=== PATIENT | female | born 1965 | race Caucasian/White ===

== ENCOUNTER 2023-05-05 21:35 | Observation (INO) | payer OTHER ==
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
[2023-05-06 07:44] LABS: Amphetamine Screen,Urine Not Detected (NotDetected); Barbiturate Screen,Urine Not Detected (NotDetected); Benzodiazepines Screen,Urine Not Detected (NotDetected); Cocaine Screen,Urine Not Detected (NotDetected); Methadone Screen, Urine Not Detected (NotDetected); Opiate Screen,Urine Not Detected (NotDetected); Oxycodone Screen, Urine Not Detected (NotDetected); Phencyclidine Screen,Urine Not Detected (NotDetected); Tricyclic Antidepressant,Urine Not Detected (NotDetected); Urn Cannabinoid Scrn Not Detected (NotDetected)
[2023-05-06] MEDS ORDERED: ACETAMINOPHEN TAB 325 MG TAB PO PRN (14:37)
[2023-05-06] MEDS ORDERED: NALOXONE 0.4 MG/ML 1 ML VIAL IV PRN (14:37)
[2023-05-06] MEDS ORDERED: ALBUTEROL HFA INHALER INHALATION PRN (15:55)
[2023-05-06] MEDS ORDERED: MELATONIN 3 MG TABLET PO PRN (15:56)
[2023-05-06] MEDS ORDERED: ONDANSETRON 4 MG/2 ML VIAL IVP PRN (15:56)
--- NOTE | 2023-05-06 16:18 | P.HPIM ---
History of Present Illness H&P Date: 05/06/23 Patient is a 57-year-old female with asthma, depression, and anxiety who presented to the ER with suicidal ideation. On presentation she stated she was thinking [place]. Initially she was slated for mental health evaluation. However her Covid test came back positive and we are asked to admit the patient to the medical floor. Patient seen and examined at bedside. She does state that she has been more depressed than normal recently. She does not want to elaborate. She reports that 2 weeks ago she thought she had Covid because she was having significant nasal congestion, cough, nausea, vomiting, and lipase and pains. Most that has gotten better but she has had some continued nasal congestion. At that point in time she did go see a provider for which she refused Covid testing was consulted with increased her anxiety. Currently she still has a cough but no other symptoms. Vital signs reviewed General: nontoxic, no distress, appears at stated age Derm: warm, dry Eyes: EOMI, no lid lag, anicteric sclera, pupils equal round reactive to light ENT: Nose and ears atraumatic, no thrush, no pharyngeal erythema Cardiovascular: S1S2 reg, no murmur, positive posterior tibial pulse bilateral, no edema, Lungs: clear to auscultation bilateral, no rhonchi, no rales, no wheeze, no accessory muscle use Abdominal: soft, nontender to palpation, no guarding, no appreciable organomegaly, normal bowel sounds Ext: no gross muscle atrophy, no contractures Neuro: CN II-XII grossly intact, no focal neuro deficits Psych: Alert, oriented, appears anxious Assessment/Plan: Suicidal ideation and patient with a history of depression COVID + Asthma without exacerbation Tobacco abuse - nicotine patch 14 mcg daily - Check CBC and CMP - suicide precautions - consult psych -Resume her home albuterol inhaler 4 times daily scheduled and as needed for shortness of breath Imaging: None Data Review: Urine drug screen negative. Covid positive The patient is admitted with an anticipated greater than 2 midnight stay for evaluation of COVID and Suicidal ideation. Anticipated discharge date: [address]: [facility] This dictation was prepared using Fracture voice recognition software. Though every attempt is made to correct errors during dictation some may still exist. Past Medical History Past Medical History: Asthma, Skin Disorder History of Any Multi-Drug Resistant Organisms: None Reported Past Surgical History: Adenoidectomy, Cholecystectomy, Tonsillectomy Past Psychological History: Anxiety, Depression Smoking Status: Current every day smoker Past Alcohol Use History: None Reported Past Drug Use History: None Reported Medications and Allergies Home Medications Medication Instructions Recorded Confirmed Type Albuterol Sulfate [Ventolin HFA] 2 puff INHALATION RT-Q6H PRN 05/06/23 05/06/23 History Allergies Allergy/AdvReac Type Severity Reaction Status Date / Time Iodinated Contrast Media Allergy Swelling Verified 05/06/23 10:23 sulfamethoxazole AdvReac cannot Verified 05/06/23 10:23 [From Bactrim] urinate trimethoprim [From Bactrim] AdvReac cannot Verified 05/06/23 10:23 urinate Physical Exam Osteopathic Statement: *. No significant issues noted on an osteopathic structural exam other than those noted in the History and Physical/Consult. Vitals: Vital Signs Temp Pulse Resp BP Pulse Ox 05/06/23 06:10 98.3 F 72 18 118/78 98 05/05/23 21:41 98.1 F 77 18 122/81 98 Results Labs: Abnormal Lab Results - Last 24 Hours (Table) 05/06/23 Range/Units 13:00 SARS-CoV-2 (PCR) Detected A (Not Detectd)
[2023-05-06] MEDS: ALBUTEROL HFA INHALER INHALATION SCH ×2 (16:42→20:46)
[2023-05-06 17:45] LABS: HCT 42.3 % (34.0-46.0); HGB 13.7 gm/dL (11.4-16.0); MCH 27.2 pg (25.0-35.0); MCHC 32.5 g/dL (31.0-37.0); MCV 83.8 fL (80.0-100.0); Mean Platelet Volume 9.6; Platelet Count 201 k/uL (150-450); RBC 5.04 m/uL (3.80-5.40); RDW 13.5 % (11.5-15.5); WBC 10.1 k/uL (3.8-10.6)
[2023-05-06 17:58] LABS: ALT 38 U/L (4-34); AST 28 U/L (14-36); African American GFR (CKD) >90 (>60 ml/min/1.73 sqM); Albumin 4.2 g/dL (3.5-5.0); Albumin/Globulin Ratio 1.5; Alkaline Phosphatase 80 U/L (38-126); Anion Gap 13 mmol/L; Blood Urea Nitrogen 16 mg/dL (7-17); Calcium 9.3 mg/dL (8.4-10.2); Carbon Dioxide 26 mmol/L (22-30); Chloride 101 mmol/L (98-107); Globulin 2.8 g/dL; Glucose 146 mg/dL (74-99); Non-African American GFR(CKD) 83 (>60 ml/min/1.73 sqM); Potassium 3.9 mmol/L (3.5-5.1); Sodium 140 mmol/L (137-145); Total Bilirubin 0.4 mg/dL (0.2-1.3)
[2023-05-07] MEDS: NICOTINE 14MG/24HR PATCH TRANSDERM SCH (08:19)
[2023-05-07] MEDS: ALBUTEROL HFA INHALER INHALATION SCH ×4 (09:21→20:17)
[2023-05-07 11:47] VITALS: BMI 33.0
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
--- NOTE | 2023-05-07 18:37 | P.PN ---
Subjective Progress Note Date: 05/07/23 Hospital course: Patient is a very pleasant 57-year-old female with asthma, depression, and anxiety who presented to the ER with suicidal ideation. On presentation she stated she was thinking [place]. Initially she was slated for mental health evaluation. However her Covid test came back positive and we were asked to admit the patient to the medical floor. Physical exam: Patient seen and fully evaluated at the bedside. Patient denies having any com plaints at this time. Patient is positive for Covid 19 infection reports this was likely from 2 weeks ago when she experienced upper respiratory symptoms and GI symptoms but currently denies having any associated symptoms at this time. Vital signs reviewed General: nontoxic, no distress, appears at stated age Derm: warm, dry Eyes: EOMI, no lid lag, anicteric sclera, pupils equal round reactive to light ENT: Nose and ears atraumatic, no thrush, no pharyngeal erythema Cardiovascular: S1S2 reg, no murmur, positive posterior tibial pulse bilateral, no edema, Lungs: clear to auscultation bilateral, no rhonchi, no rales, no wheeze, no accessory muscle use Abdominal: soft, nontender to palpation, no guarding, no appreciable organomegaly, normal bowel sounds Ext: no gross muscle atrophy, no contractures Neuro: CN II-XII grossly intact, no focal neuro deficits Psych: Alert, oriented, appears anxious Assessment and plan of care: Suicidal ideation in patient with a history of depression COVID detected, asymptomatic Asthma without exacerbation Tobacco abuse -Continue nicotine patch 14 mcg daily -Suicide precautions with one-to-one sitter at all times -Psychiatry following, appreciate recommendations -Resume her home albuterol inhaler 4 times daily scheduled and as needed for shortness of breath Imaging reviewed: No new imaging for review: Data Reviewed: -Labs completed and Reviewed CBC and CMP. CBC unremarkable with WBC count of 10.1, hemoglobin of 13.7, platelet count of 201. BMP was unremarkable. Glucose was 146. Liver profile showing elevated AST of 38 otherwise normal findings. -Vital signs reviewed. Blood pressure 156/69, heart rate 76, respiratory rate 18, temperature 98.2F, SpO2 of 95% on room air. CODE STATUS: Full code DVT prophylaxis: Lovenox Anticipated discharge date: [address]: [facility] Patient was seen independently by Nurse Pracitioner. This document was prepared using Blurb dictation software. Please allow for errors in software development manager, while rare they do occur. Myke Allen EXTENSION COURSE COUNSELOR rendered care for this patient independently, reviewed the findings and plan as documented in the note above. I did not physically speak with or examine the patient on this date. Objective - Vital Signs Vital signs: Vital Signs Temp 98.2 F 05/07/23 07:36 Pulse 76 05/07/23 07:36 Resp 18 05/07/23 07:36 BP 156/69 05/07/23 07:36 Pulse Ox 95 05/07/23 07:36 FiO2 Intake & Output 05/06/23 05/07/23 05/07/23 18:59 06:59 18:59 Weight 95.708 kg Other: Voiding Method Toilet # Voids 1 - Labs CBC & Chem 7: 05/06/23 17:26 05/06/23 17:26 Labs: Abnormal Lab Results - Last 24 Hours (Table) 05/06/23 05/06/23 Range/Units 13:00 17:26 Glucose 146 H (74-99) mg/dL ALT 38 H (4-34) U/L SARS-CoV-2 (PCR) Detected A (Not Detectd)
[2023-05-07] MEDS: risperiDONE 1 MG TAB PO SCH (20:59)
[2023-05-08] MEDS: ENOXAPARIN 40 MG/0.4 ML SYRINGE SQ SCH (07:26)
[2023-05-08] MEDS: NICOTINE 14MG/24HR PATCH TRANSDERM SCH (07:26)
[2023-05-08] MEDS: SERTRALINE 25 MG TAB PO SCH (07:26)
[2023-05-08] MEDS: ALBUTEROL HFA INHALER INHALATION SCH ×4 (08:28→20:08)
--- NOTE | 2023-05-08 16:07 | P.PN ---
Subjective Progress Note Date: 05/08/23 Hospital course: Patient is a very pleasant 57-year-old female with asthma, depression, and anxiety who presented to the ER with suicidal ideation. On presentation she stated she was thinking about [place]. Initially she was slated for mental health evaluation. However her Covid test came back positive and we were asked to admit the patient to the medical floor. Physical exam: Patient seen and fully evaluated at the bedside. Patient sitting up in the [facility] at bedside with one-to-one sitter in room. Patient continues to deny having any signs/symptoms of COVID-19 infection at this time. Vital signs reviewed General: nontoxic, no distress, appears at stated age Derm: warm, dry Eyes: EOMI, no lid lag, anicteric sclera, pupils equal round reactive to light ENT: Nose and ears atraumatic, no thrush, no pharyngeal erythema Cardiovascular: S1S2 reg, no murmur, positive posterior tibial pulse bilateral, no edema, Lungs: clear to auscultation bilateral, no rhonchi, no rales, no wheeze, no accessory muscle use Abdominal: soft, nontender to palpation, no guarding, no appreciable organomegaly, normal bowel sounds Ext: no gross muscle atrophy, no contractures Neuro: CN II-XII grossly intact, no focal neuro deficits Psych: Alert, oriented, appears anxious Assessment and plan of care: Suicidal ideation in patient with a history of depression COVID detected, asymptomatic Asthma without exacerbation Tobacco abuse -Continue nicotine patch 14 mcg daily -Suicide precautions with one-to-one sitter at all times -Psychiatry following, appreciate recommendations -Resume her home albuterol inhaler 4 times daily scheduled and as needed for shortness of breath Imaging reviewed: No new imaging for review: Data Reviewed: -Vital signs reviewed. Blood pressure 144/90, heart rate 67, respiratory rate 18, temp 98.4F, and SpO2 93% on room air. CODE STATUS: Full code DVT prophylaxis: Lovenox Anticipated discharge date: [address]: [facility] Patient was seen independently by Nurse Pracitioner. This document was prepared using ElasticDot dictation software. Please allow for errors in heel sprayer, while rare they do occur. Myke Allen NP rendered care for this patient independently, reviewed the findings and plan as documented in the note above. I did not physically speak with or examine the patient on this date. Objective - Vital Signs Vital signs: Vital Signs Temp 98.7 F 05/08/23 13:35 Pulse 65 05/08/23 13:35 Resp 18 05/08/23 13:35 BP 120/83 05/08/23 13:35 Pulse Ox 96 05/08/23 13:35 FiO2 Intake & Output 05/07/23 05/08/23 05/08/23 18:59 06:59 18:59 Weight 95.708 kg Other: # Voids 4 4 - Labs CBC & Chem 7: 05/06/23 17:26 05/06/23 17:26
[2023-05-08] MEDS: risperiDONE 1 MG TAB PO SCH (19:29)
[2023-05-09] MEDS: ENOXAPARIN 40 MG/0.4 ML SYRINGE SQ SCH (07:44)
[2023-05-09] MEDS: NICOTINE 14MG/24HR PATCH TRANSDERM SCH (07:44)
[2023-05-09] MEDS: SERTRALINE 25 MG TAB PO SCH (08:00)
[2023-05-09] MEDS: ALBUTEROL HFA INHALER INHALATION SCH ×4 (09:31→20:55)
--- NOTE | 2023-05-09 12:33 | P.PN ---
Subjective Progress Note Date: 05/09/23 Patient is a 57-year-old female with asthma, depression, and anxiety who presented to the ER with suicidal ideation. On presentation she stated she [place] Initially she was slated for mental health evaluation. However her COVID test came back positive and we are asked to admit the patient to the medical floor. In the ED she underwent extensive evaluation. Vital signs BP 122/81, RR, 18, HR 77, T98.1F, 98% on RA. CBC and UDS unremarkable. COVID + CMP glu 146, ALT 38. EKG sinus rhythm first degree AV block, incomplete RBBB. 05/09 Patient was seen and examined. Sitter at bedside. Vital signs reviewed General: nontoxic, no distress, appears at stated age Cardiovascular: good distal perfusion in all 4 extremities Lungs: breathing comfortably Neuro: ambulating without difficulties Psych: Alert, oriented, appropriate affect Based on my assessment of this patient, this patient meets a moderate complexity level of care. Patient has a new diagnosis of suicidal ideation with COVID + with uncertain prognosis. Suicidal ideation in patient with a history of depression: 1:1 sitter. Risperidal 1 mg PO QHS. Zoloft 25 mg PO QD. Inpatient psyc admission when able. Psychiatry on board. COVID detected, asymptomatic Asthma without exacerbation: Albuterol INH PRN for SOB/wheezing. Tobacco abuse: Nicotine patch 14 mg/24H. CODE STATUS: FULL CODE DVT Prophylaxis: Lovenox GI Prophylaxis: Designated medical POA if patient is not able to make medical decisions for themselves: I have reviewed the following customer care consultant notes: I have reviewed the results of the following tests: I have ordered the following tests: I have discussed the care of this patient with the following independent historian: I have independently interpreted the following test below: I have discussed the management of this patient with the following physician: Objective - Vital Signs Vital signs: Vital Signs Temp 97.8 F 05/09/23 02:15 Pulse 59 L 05/09/23 02:15 Resp 16 05/09/23 02:15 BP 139/78 05/09/23 02:15 Pulse Ox 94 L 05/09/23 02:15 FiO2 Intake & Output 05/08/23 05/09/23 05/09/23 18:59 06:59 18:59 Intake Total 960 Output Total 4 Balance -4 960 Intake: Oral 960 Output: Urine 4 Other: # Voids 3 # Bowel Movements 0 - Labs CBC & Chem 7: 05/06/23 17:26 05/06/23 17:26
--- NOTE | 2023-05-09 13:16 | P.PN ---
Subjective Progress Note Date: 05/09/23 Principal diagnosis: Delusional disorder DENTIFYING DATA: This patient is a 57-year-old female, currently homeless, is currently , unemployed, has 1 daughter. REASON FOR REFERRAL: Psychiatry was consulted for depression but the patient also has some paranoid delusions HISTORY OF PRESENT ILLNESS: The patient presented to the hospital on 05/05 to the ER with increasing depression and suicidal ideations and increasing stressors. Patient apparently claims that she had a plan to drive herself into the water was a suicide attempt. She says, "this has been the best thing that is ever happened to me because I had isolated myself and now I am getting back in touch with people and with God. " PAST PSYCHIATRIC HISTORY: Patient has a a history of depression. She claims that several years ago she was on Prozac however stopped taking it after a month. Patient denies any previous psychiatric hospitalizations. Patient denies any psychiatric outpatient follow-up. Patient denies any history of suicide attempts in the past. Past Medical History: Asthma, Skin Disorder History of Any Multi-Drug Resistant Organisms: None Reported Past Surgical History: Adenoidectomy, Cholecystectomy, Tonsillectomy Past Psychological History: Anxiety, Depression Smoking Status: Current every day smoker Past Alcohol Use History: None Reported Past Drug Use History: None Reported MENTAL STATUS EXAM: The patient is oriented alert good social skills and functions well until she starts talking about peculiar sabotaging events. For example she noticed that the entrance to the attic from her daughter's room had been moved and her daughter could not move it and she assumed that there must be a connection between her headache and the neighbors attic and that the neighbors were coming over looking for things in her apartment. When asked her what did be looking for she said her parents certificates. When I asked her why anyone would want that she couldn't answer. She also was working at [employer] and wanted to take some time off to reconnect with her daughter after Missy had down. She felt that [employer] older one she had worked hard for them thr oughout Missy and she was told that she could take the time off and come back anytime she wanted. When she tried to come back they wouldn't let her. She was going to have to lose her house can she could make payments but she had a lot of equity in so the bank moved in and started selling off her things and auctioning the house. She says she went to a realtor and said can they do that and what if I find someone to buy the house myself and they worked with her and were able to find someone to buy the house which is why she still has a little money but she does need to find a place to stay and a job. She had purchased something that was supposed to protect her allow her to have some time to get her act together if she was unable to pay the bank lone. When she went to collect on this policy they said that someone had called up and canceled again she felt that this was part of others machinations. Nothing that she believes is impossible but is highly unlikely she has more or less ego-syntonic affect when she presents it General Appearance: Patient appears to be have curly hair, stated age is alert, attempts to cooperate however suspicious, bizarre. Patient appears to have fair hygiene and grooming wearing hospital gown with fair eye contact. Behavior: Patient is calmly lying in bed without any agitated behavior. Bizarre at times, argumentative Speech: Patient's speech is fluent and nonpressured. Rambling. Mood/Affect: Patient reports their mood is "upset]", affect is congruent Suicidality/Homicidality: Patient denies having any suicidal or homicidal ideation intent or plan. Perceptions: Patient denies any visual hallucinations and denies any auditory hallucinations Though content/process: Patient has paranoid delusions, loosely formed, bizarre at times. Memory and concentration: AOX3, grossly intact for the purposes of this session. Can spell "WORLD" backwards Judgment and insight: poor IMPRESSIONS: I believe she is struggling with a delusional disorder PLAN: The patient is refusing medications at this time -At this time patient DOES meet criteria for inpatient psychiatric admission however due to patient being positive for covid, we'll continue to treat patient psychiatrically while on the medical floors. -Would recommend the following medication changes/additions: Risperdal 1 mg by mouth daily at bedtime for delusions/psychosis, Zoloft 25 mg daily for mood/anxiety. -Continue 1:1 sitter for safety -Cannot leave AMA at this time. Patient will need a petition and certification if attempting to leave AMA. -Communicated plan to patient's nurse -Will continue to follow along as needed. Objective - Vital Signs Vital signs: Vital Signs Temp 97.8 F 05/09/23 08:19 Pulse 80 05/09/23 08:19 Resp 16 05/09/23 08:19 BP 146/76 05/09/23 08:19 Pulse Ox 97 05/09/23 08:19 FiO2 Intake & Output 05/08/23 05/09/23 05/09/23 18:59 06:59 18:59 Intake Total 960 118 Output Total 4 Balance -4 960 118 Intake: Oral 960 118 Output: Urine 4 Other: # Voids 3 # Bowel Movements 0 - Labs CBC & Chem 7: 05/06/23 17:26 05/06/23 17:26
[2023-05-09] MEDS: risperiDONE 1 MG TAB PO SCH (19:19)
[2023-05-10] MEDS: NICOTINE 14MG/24HR PATCH TRANSDERM SCH (07:47)
[2023-05-10] MEDS: SERTRALINE 25 MG TAB PO SCH (07:47)
[2023-05-10] MEDS: ENOXAPARIN 40 MG/0.4 ML SYRINGE SQ SCH (07:47)
[2023-05-10] MEDS: ALBUTEROL HFA INHALER INHALATION SCH ×5 (09:00→18:13)
--- NOTE | 2023-05-10 10:57 | P.PN ---
Subjective Progress Note Date: 05/10/23 Patient is a 57-year-old female with asthma, depression, and anxiety who presented to the ER with suicidal ideation. On presentation she stated she was thinking [place] Initially she was slated for mental health evaluation. However her COVID test came back positive and we are asked to admit the patient to the medical floor. In the ED she underwent extensive evaluation. Vital signs BP 122/81, RR, 18, HR 77, T98.1F, 98% on RA. CBC and UDS unremarkable. COVID + CMP glu 146, ALT 38. EKG sinus rhythm first degree AV block, incomplete RBBB. 05/09 Patient was seen and examined. Sitter at bedside. 05/10 Patient was seen and examined. No complaints. Denies SI. Sitter at bed side. Vital signs reviewed General: nontoxic, no distress, appears at stated age Cardiovascular: good distal perfusion in all 4 extremities Lungs: breathing comfortably Neuro: ambulating without difficulties Psych: Alert, oriented, appropriate affect Based on my assessment of this patient, this patient meets a moderate complexity level of care. Patient has a new diagnosis of suicidal ideation with COVID + with uncertain prognosis. Suicidal ideation in patient with a history of depression: 1:1 sitter. Risperidal 1 mg PO QHS. Zoloft 25 mg PO QD. Inpatient psyc admission when able. Psychiatry on board. COVID detected, asymptomatic Asthma without exacerbation: Albuterol INH PRN for SOB/wheezing. Tobacco abuse: Nicotine patch 14 mg/24H. CODE STATUS: FULL CODE DVT Prophylaxis: Lovenox GI Prophylaxis: Designated medical POA if patient is not able to make medical decisions for themselves: I have reviewed the following financial analysis consultant notes: I have reviewed the results of the following tests: I have ordered the following tests: I have discussed the care of this patient with the following independent historian: I have independently interpreted the following test below: I have discussed the management of this patient with the following physician: Objective - Vital Signs Vital signs: Vital Signs Temp 97.9 F 05/10/23 07:10 Pulse 72 05/10/23 07:10 Resp 19 05/10/23 07:10 BP 142/87 05/10/23 07:10 Pulse Ox 96 05/10/23 07:10 FiO2 Intake & Output 05/09/23 05/10/23 05/10/23 18:59 06:59 18:59 Intake Total 236 Balance 236 Intake: Oral 236 Other: # Voids 2 3 # Bowel Movements 2 - Labs CBC & Chem 7: 05/06/23 17:26 05/06/23 17:26
[2023-05-10] MEDS: risperiDONE 1 MG TAB PO SCH (19:37)
[2023-05-11] MEDS: SERTRALINE 25 MG TAB PO SCH (08:11)
[2023-05-11] MEDS: NICOTINE 14MG/24HR PATCH TRANSDERM SCH (08:11)
[2023-05-11] MEDS: ENOXAPARIN 40 MG/0.4 ML SYRINGE SQ SCH (08:11)
[2023-05-11] MEDS: ALBUTEROL HFA INHALER INHALATION SCH ×4 (09:24→22:27)
--- NOTE | 2023-05-11 11:55 | P.PN ---
Subjective Progress Note Date: 05/11/23 Patient is a 57-year-old female with asthma, depression, and anxiety who presented to the ER with suicidal ideation. On presentation she stated she was thinking [place] Initially she was slated for mental health evaluation. However her COVID test came back positive and we are asked to admit the patient to the medical floor. In the ED she underwent extensive evaluation. Vital signs BP 122/81, RR, 18, HR 77, T98.1F, 98% on RA. CBC and UDS unremarkable. COVID + CMP glu 146, ALT 38. EKG sinus rhythm first degree AV block, incomplete RBBB. 05/09 Patient was seen and examined. Sitter at bedside. 05/10 Patient was seen and examined. No complaints. Denies SI. Sitter at bed side. 05/11 Patient was seen and examined. Talking comfortably to the sitter at bedside. Vital signs reviewed General: nontoxic, no distress, appears at stated age Cardiovascular: good distal perfusion in all 4 extremities Lungs: breathing comfortably Neuro: ambulating without difficulties Psych: Alert, oriented, appropriate affect Based on my assessment of this patient, this patient meets a moderate complexity level of care. Patient has a new diagnosis of suicidal ideation with COVID + with uncertain prognosis. Suicidal ideation in patient with a history of depression: 1:1 sitter. Risper idal 1 mg PO QHS. Zoloft 25 mg PO QD. Inpatient psyc admission when able. Psychiatry on board. COVID detected, asymptomatic Asthma without exacerbation: Albuterol INH PRN for SOB/wheezing. Tobacco abuse: Nicotine patch 14 mg/24H. CODE STATUS: FULL CODE DVT Prophylaxis: Lovenox GI Prophylaxis: Designated medical POA if patient is not able to make medical decisions for themselves: I have reviewed the following platform consultant notes: I have reviewed the results of the following tests: I have ordered the following tests: I have discussed the care of this patient with the following independent his gerard: I have independently interpreted the following test below: I have discussed the management of this patient with the following physician: Objective - Vital Signs Vital signs: Vital Signs Temp 97.5 F L 05/11/23 07:47 Pulse 78 05/11/23 07:47 Resp 18 05/11/23 07:47 BP 169/92 05/11/23 07:47 Pulse Ox 98 05/11/23 07:47 FiO2 Intake & Output 05/10/23 05/11/23 05/11/23 18:59 06:59 18:59 Other: # Voids 5 3 # Bowel Movements 1 - Labs CBC & Chem 7: 05/06/23 17:26 05/06/23 17:26
[2023-05-11] MEDS: risperiDONE 1 MG TAB PO SCH (19:59)
[2023-05-12] MEDS: ENOXAPARIN 40 MG/0.4 ML SYRINGE SQ SCH (07:42)
[2023-05-12] MEDS: NICOTINE 14MG/24HR PATCH TRANSDERM SCH (07:42)
[2023-05-12] MEDS: SERTRALINE 25 MG TAB PO SCH (07:43)
[2023-05-12] MEDS: ALBUTEROL HFA INHALER INHALATION SCH ×4 (09:30→21:02)
--- NOTE | 2023-05-12 11:57 | P.PN ---
Subjective Progress Note Date: 05/12/23 Patient is a 57-year-old female with asthma, depression, and anxiety who presented to the ER with suicidal ideation. On presentation she stated she was [place] Initially she was slated for mental health evaluation. However her COVID test came back positive and we are asked to admit the patient to the medical floor. In the ED she underwent extensive evaluation. Vital signs BP 122/81, RR, 18, HR 77, T98.1F, 98% on RA. CBC and UDS unremarkable. COVID + CMP glu 146, ALT 38. EKG sinus rhythm first degree AV block, incomplete RBBB. 05/09 Patient was seen and examined. Sitter at bedside. 05/10 Patient was seen and examined. No complaints. Denies SI. Sitter at bed side. 05/11 Patient was seen and examined. Talking comfortably to the sitter at bedside. 05/12 Patient was seen and examined. No complaints. Talking in full sentences. Vital signs reviewed General: nontoxic, no distress, appears at stated age Cardiovascular: good distal perfusion in all 4 extremities Lungs: breathing comfortably Neuro: ambulating without difficulties Psych: Alert, oriented, appropriate affect Based on my assessment of this patient, this patient meets a moderate complexity level of care. Patient has a new diagnosis of suicidal ideation with COVID + with uncertain prognosis. Suicidal ideation in patient with a history of depression: 1:1 sitter. Risperidal 1 mg PO QHS. Zoloft 25 mg PO QD. Inpatient psyc admission when able. Psychiatry on board. COVID detected, asymptomatic Asthma without exacerbation: Albuterol INH PRN for SOB/wheezing. Tobacco abuse: Nicotine patch 14 mg/24H. CODE STATUS: FULL CODE DVT Prophylaxis: Lovenox GI Prophylaxis: Designated medical POA if patient is not able to make medical decisions for themselves: I have reviewed the following fundraising consultant notes: I have reviewed the results of the following tests: I have ordered the following tests: I have discussed the care of this patient with the following independent historian: I have independently interpreted the following test below: I have discussed the management of this patient with the following physician: Objective - Vital Signs Vital signs: Vital Signs Temp 97.6 F 05/12/23 02:45 Pulse 64 05/12/23 02:45 Resp 18 05/12/23 02:45 BP 164/78 05/12/23 02:45 Pulse Ox 98 05/12/23 02:45 FiO2 Intake & Output 05/11/23 05/12/23 05/12/23 18:59 06:59 18:59 Other: Voiding Method Toilet # Voids 4 2 - Labs CBC & Chem 7: 05/06/23 17:26 05/06/23 17:26
[2023-05-12] MEDS: risperiDONE 1 MG TAB PO SCH (20:27)
[2023-05-13] MEDS: ENOXAPARIN 40 MG/0.4 ML SYRINGE SQ SCH (07:45)
[2023-05-13] MEDS: NICOTINE 14MG/24HR PATCH TRANSDERM SCH (07:45)
[2023-05-13] MEDS: SERTRALINE 25 MG TAB PO SCH (07:46)
[2023-05-13] MEDS: NYSTATIN 100,000 UNIT/GM POWD 15 GM TOPICAL SCH ×2 (08:31→20:29)
[2023-05-13] MEDS: ALBUTEROL HFA INHALER INHALATION SCH ×4 (09:59→21:15)
--- NOTE | 2023-05-13 11:44 | P.PN ---
Subjective Progress Note Date: 05/13/23 Patient is a 57-year-old female with asthma, depression, and anxiety who presented to the ER with suicidal ideation. On presentation she stated she was [place] Initially she was slated for mental health evaluation. However her COVID test came back positive and we are asked to admit the patient to the medical floor. In the ED she underwent extensive evaluation. Vital signs BP 122/81, RR, 18, HR 77, T98.1F, 98% on RA. CBC and UDS unremarkable. COVID + CMP glu 146, ALT 38. EKG sinus rhythm first degree AV block, incomplete RBBB. 05/09 Patient was seen and examined. Sitter at bedside. 05/10 Patient was seen and examined. No complaints. Denies SI. Sitter at bed side. 05/11 Patient was seen and examined. Talking comfortably to the sitter at bedside. 05/12 Patient was seen and examined. No complaints. Talking in full sentences. 05/13 Patient was seen and examined. No complaints. States she lives out of her car. Needed someone to talk to. Vital signs reviewed General: nontoxic, no distress, appears at stated age Cardiovascular: good distal perfusion in all 4 extremities Lungs: breathing comfortably Neuro: ambulating without difficulties Psych: Alert, oriented, appropriate affect Based on my assessment of this patient, this patient meets a moderate complexity level of care. Patient has a new diagnosis of suicidal ideation with COVID + with uncertain prognosis. Suicidal ideation in patient with a history of depression: 1:1 sitter. Risperidal 1 mg PO QHS. Zoloft 25 mg PO QD. Inpatient psyc admission when able. Psychiatry on board. COVID detected, asymptomatic Asthma without exacerbation: Albuterol INH PRN for SOB/wheezing. Tobacco abuse: Nicotine patch 14 mg/24H. CODE STATUS: FULL CODE DVT Prophylaxis: Lovenox GI Prophylaxis: Designated medical POA if patient is not able to make medical decisions for themselves: I have reviewed the following automation consultant notes: I have reviewed the results of the following tests: I have ordered the following tests: I have discussed the care of this patient with the following independent historian: I have independently interpreted the following test below: I have discussed the management of this patient with the following physician: Objective - Vital Signs Vital signs: Vital Signs Temp 98.2 F 05/13/23 07:26 Pulse 77 12/27/23 07:26 Resp 20 05/13/23 07:26 BP 153/89 05/13/23 07:26 Pulse Ox 96 05/13/23 07:26 FiO2 Intake & Output 05/12/23 05/13/23 05/13/23 18:59 06:59 18:59 Other: Voiding Method Toilet Toilet Toilet # Voids 3 2 1 - Labs CBC & Chem 7: 05/06/23 17:26 05/06/23 17:26
[2023-05-13] MEDS: risperiDONE 1 MG TAB PO SCH (20:30)
[2023-05-14 07:17] VITALS: BP 149/80; PULSE 71; RESP 19; TEMP 98.1
[2023-05-14] MEDS: ALBUTEROL HFA INHALER INHALATION SCH ×2 (09:32→12:23)
[2023-05-14] MEDS: NICOTINE 14MG/24HR PATCH TRANSDERM SCH (10:11)
[2023-05-14] MEDS: ENOXAPARIN 40 MG/0.4 ML SYRINGE SQ SCH (10:11)
[2023-05-14] MEDS: SERTRALINE 25 MG TAB PO SCH (10:11)
--- NOTE | 2023-05-14 13:07 | P.PN ---
Progress Note - Text Progress Note Date: 05/14/23 The patient was seen for a follow-up The patient was last seen by Dr. Herrera on 05/07/23 IDENTIFYING DATA: This patient is a 57-year-old female, currently homeless, is currently , unemployed, has 1 daughter. When seen today patient reports that she is not depressed or suicidal She says that sometimes people take things out of context and that she was talking about an issue where she was frustrated from not finding a job However she states that she's been feeling out several different request for applications and overall remains hopeful He states that she has worked in several different professional capacity and eventually she feels that something will work out She says that she is currently not under pressure because she recently was able to sell her house and that she's been living off from her proceedings where she was able to purchase a car and was able to pay off all her bills She says that she is currently living in her car and could also for a hotel if she needs to She says that she takes care of her personal hygiene by living in the hotel of those times She stated that she has family and a daughter but does not want to have anything to do with them at this time Patient did not want to elaborate on the family issues She says that she has no illness and argued about the symptoms of schizoaffective disorder and schizophrenia and wanted me to clarify the differences She denies that she has any intention of harming herself or others and states that there is nothing wrong with her and that she declined to take the Risperdal as suggested by Dr. Herrera She denies any intention of harming herself at this time is requested to be discharged although she did as 4 the address for the local mental health services She denies any auditory or visual hallucinations at this time Mental status examination: Reveals a middle-aged female who currently appears in no acute physical distress Patient is alert and oriented to time place and person Patient's affect was bright and in fact patient comes across as slightly expansive and euphoric Thought processes are goal-directed sequential and self-centered Patient continues to rationalize intellectualize She denies any suicidal or homicidal ideations or plans Patient denies any thoughts of wanting to hurt herself or others Hygiene appears to be fair Patient denies any auditory or visual hallucinations or any intention of harming herself or others Formal and operational judgment and insight remains concrete Diagnostic impression: Bipolar disorder hypomanic-type Adjustment disorder unspecified Plan: The patient was recommended for inpatient psychiatric hospitalization as well as/outpatient management through mental health services Patient however declined any medications or inpatient treatment She said that she plans to follow up with local mental services for supportive counseling She is recommended for appropriate follow-up and approach to over services in future if she decides to change her mind and the seek on further help for her psychiatric illness Thank you very much for kind referral and please refer to contact me for any further questions Charly Collins M.D.
--- NOTE | 2023-05-14 13:43 | P.DS ---
Providers Date of admission: 05/06/23 14:37 Expected date of discharge: 05/14/23 Attending physician: Yakov Barajas MD Consults: 05/06/23 14:37 Consult Physician Routine Consulting Provider: Rosalino Mora Consult Reason/Comments: depression Do you want consulting provider notified?: Yes Primary care physician: Stated None Hospital Course: Patient is a 57-year-old female with asthma, depression, and anxiety who presented to the ER with suicidal ideation. On presentation she stated she [place] Initially she was slated for mental health evaluation. However her COVID test came back positive and we are asked to admit the patient to the medical floor. In the ED she underwent extensive evaluation. Vital signs BP 122/81, RR, 18, HR 77, T98.1F, 98% on RA. CBC and UDS unremarkable. COVID + CMP glu 146, ALT 38. EKG sinus rhythm first degree AV block, incomplete RBBB. 05/09 Patient was seen and examined. Sitter at bedside. 05/10 Patient was seen and examined. No complaints. Denies SI. Sitter at bedside. 05/11 Patient was seen and examined. Talking comfortably to the sitter at bedside. 05/12 Patient was seen and examined. No complaints. Talking in full sentences. 05/13 Patient was seen and examined. No complaints. States she lives out of her car. Needed someone to talk to. 05/14 Patient was seen and examined. Denies SI/HI. Discussed with RN, psych has cleared the patient for discharge. Plans for discharge home on Zoloft and Risperidal. Advised to follow up with Psyc in the outpatient setting. Vital signs reviewed General: nontoxic, no distress, appears at stated age Cardiovascular: good distal perfusion in all 4 extremities Lungs: breathing comfortably Neuro: ambulating without difficulties Psych: Alert, oriented, appropriate affect Discharge Diagnosis: Suicidal ideation in patient with a history of depression COVID detected, asymptomatic Asthma without exacerbation Tobacco abuse Patient Condition at Discharge: Stable Plan - Discharge Summary Discharge Rx Participant: Yes New Discharge Prescriptions: New risperiDONE [RisperDAL] 1 mg PO HS #30 tab Sertraline [Zoloft] 25 mg PO DAILY #30 tab Continue Albuterol Sulfate [Ventolin HFA] 2 puff INHALATION RT-Q6H PRN #1 each PRN Reason: Shortness Of Breath Discharge Medication List Albuterol Sulfate [Ventolin HFA] 2 puff INHALATION RT-Q6H PRN #1 each 05/14/23 [Rx] Sertraline [Zoloft] 25 mg PO DAILY #30 tab 05/14/23 [Rx] risperiDONE [RisperDAL] 1 mg PO HS #30 tab 05/14/23 [Rx] Follow up Appointment(s)/Referral(s): None,Stated [Primary Care Provider] - 1-2 days Discharge/Stand Alone Forms: [facility], [facility], [facility] Discharge Disposition: HOME SELF-CARE
== END 2023-05-14 13:40 | disposition home or self-care (01) ==
LOC: EC 21:35 → 4SSUR 05-06 14:37
PROVIDERS: ADMIT Student in an Organized Health Care Education/Training Program; ATTEND Student in an Organized Health Care Education/Training Program
DX: F31.0 Bipolar disorder, current episode hypomanic (principal); F43.21 Adjustment disorder with depressed mood; R45.851 Suicidal ideations; U07.1 COVID-19; J45.909 Unspecified asthma, uncomplicated; F41.9 Anxiety disorder, unspecified; F17.200 Nicotine dependence, unspecified, uncomplicated; Z56.0 Unemployment, unspecified; Z59.02 Unsheltered homelessness; Z88.2 Allergy status to sulfonamides
CPT/HCPCS: 82075; 99285; 94640 ×9; 93005; 80053; 85027; 80306; 87635; G0378 ×9

== ENCOUNTER 2024-05-14 04:18 | Emergency (ER) | payer OTHER ==
[2024-05-14 04:25] VITALS: BP 173/109; PULSE 76; RESP 18; TEMP 97.9
--- NOTE | 2024-05-14 13:09 | ED ---
General Adult HPI - General Chief complaint: Psychiatric Symptoms Stated complaint: Mental Health Time Seen by Provider: 05/14/24 12:25 Source: EMS, RN notes reviewed Mode of arrival: EMS Limitations: no limitations - History of Present Illness Initial comments: 58-year-old female presents to the emergency department for evaluation of depression. Patient reports that over the past few days she has been feeling more down. She notes that she currently lives in her car and has been reaching out to family for help but no one has been willing to help her according to the patient. She states that she has been told she has been told she has bipolar disorder but states that this is not true. She is not currently on any medications for her mental health. Denies suicidal ideation. Denies HI, hallucinations. Denies any physical complaints at this time - Related Data Home Medications Medication Instructions Recorded Confirmed No Known Home Medications 05/14/24 05/14/24 Allergies Allergy/AdvReac Type Severity Reaction Status Date / Time Iodinated Contrast Media Allergy Swelling Verified 05/14/24 16:11 sulfamethoxazole AdvReac cannot Verified 05/14/24 16:11 [From Bactrim] urinate trimethoprim [From Bactrim] AdvReac cannot Verified 05/14/24 16:11 urinate Review of Systems ROS Statement: Those systems with pertinent positive or pertinent negative responses have been documented in the HPI. ROS Other: All systems not noted in ROS Statement are negative. Past Medical History Past Medical History: Asthma, Skin Disorder History of Any Multi-Drug Resistant Organisms: None Reported Past Surgical History: Adenoidectomy, Cholecystectomy, Tonsillectomy Past Psychological History: Anxiety, Depression Smoking Status: Current every day smoker Past Alcohol Use History: None Reported Past Drug Use History: None Reported General Exam Limitations: no limitations General appearance: alert, in no apparent distress Head exam: Present: atraumatic, normocephalic, normal inspection Eye exam: Present: normal appearance, PERRL, EOMI. Absent: scleral icterus, conjunctival injection, periorbital swelling Respiratory exam: Present: normal lung sounds bilaterally. Absent: respiratory distress, wheezes, rales, rhonchi, stridor Cardiovascular Exam: Present: regular rate, normal rhythm, normal heart sounds. Absent: systolic murmur, diastolic murmur, rubs, gallop, clicks Extremities exam: Present: normal inspection, full ROM, normal capillary refill. Absent: tenderness, pedal edema, joint swelling, calf tenderness Back exam: Present: normal inspection Neurological exam: Present: alert, oriented X3 Psychiatric exam: Present: depressed Skin exam: Present: warm, dry, intact, normal color. Absent: rash Course Vital Signs 05/14/24 04:20 Temperature 97.9 F Pulse Rate 76 Respiratory 18 Rate Blood Pressure 173/109 O2 Sat by Pulse 100 Oximetry Medical Decision Making - Medical Decision Making Was pt. sent in by a medical professional or institution (, PA, INSTRUMENT MAINTENANCE SUPERVISOR, urgent care, hospital, or correction...) When possible be specific @ -No Did you speak to anyone other than the patient for history (EMS, parent, family, police, friend...)? What history was obtained from this source @ -No Did you review nursing and triage notes (agree or disagree)? Why? @ -I reviewed and agree with nursing and triage notes Were old charts reviewed (outside hosp., previous admission, EMS record, old EKG, old radiological studies, urgent care reports/EKG's, correction records)? Report findings @ -No old charts were reviewed Differential Diagnosis (chest pain, altered mental status, abdominal pain women, abdominal pain men, vaginal bleeding, weakness, fever, dyspnea, syncope, headache, dizziness, GI bleed, back pain, seizure, CVA, palpatations, mental health, musculoskeletal)? @ -Differential Mental Health Depression, anxiety, bipolar, psychosis, schizophrenia, borderline personality, situational depression, adjustment disorder, behavioral disorder, brain tumor, malingering, substance abuse, encephalopathy, medication reaction, dementia, hypothyroidism, degenerative neurologic disorder, lupus.... This is not meant to be all-inclusive list EKG interpreted by me (3pts min.). @ -None X-rays interpreted by me (1pt min.). @ -None done CT interpreted by me (1pt min.). @ -None done U/S interpreted by me (1pt. min.). @ -None done What testing was considered but not performed or refused? (CT, X-rays, U/S, labs)? Why? @ -None What meds were considered but not given or refused? Why? @ -None Did you discuss the management of the patient with other professionals (professionals i.e. , PA, INSTRUMENT MAINTENANCE SUPERVISOR, lab, RT, psych nurse, dialysis social worker, reimbursement specialist, teacher, community liaison officer, spring encaser)? Give summary @ -Management discussed with EPS Was smoking cessation discussed for >3mins.? @ -No Was critical care preformed (if so, how long)? @ -No Were there social determinants of health that impacted care today? How? (Homelessness, low income, unemployed, alcoholism, drug addiction, lee sportation, low edu. Level, literacy, decrease access to med. care, senior living, rehab)? @ -No Was there de-escalation of care discussed even if they declined (Discuss DNR or withdrawal of care, Hospice)? DNR status @ -No What co-morbidities impacted this encounter? (DM, HTN, Smoking, COPD, CAD, Cancer, CVA, ARF, Chemo, Hep., AIDS, mental health diagnosis, sleep apnea, morbid obesity)? @ -None Was patient admitted / discharged? Hospital course, mention meds given and route, prescriptions, significant lab abnormalities, going to OR and other pertinent info. @ -Patient presented the emergency department for evaluation of mental health concerns. Patient was medically cleared. Evaluated by EPS. A safety plan was put into place. Patient is agreeable with discharge plan. Patient stable at time of discharge. Case discussed with Dr. Navarro Undiagnosed new problem with uncertain prognosis? @ -No Drug Therapy requiring intensive monitoring for toxicity (Heparin, Nitro, Insulin, Cardizem)? @ -No Were any procedures done? @ -No Diagnosis/symptom? @ -Depression Acute, or Chronic, or Acute on Chronic? @ -acute Uncomplicated (without systemic symptoms) or Complicated (systemic symptoms)? @ -uncomplicated Side effects of treatment? @ -No Exacerbation, Progression, or Severe Exacerbation? @ -No Poses a threat to life or bodily function? How? (Chest pain, [place], [place], pneumonia, PE, COPD, DKA, ARF, appy, cholecystitis, CVA, Diverticulitis, Homicidal, Suicidal, threat to staff... and all critical care pts) @ -No - Lab Data Lab Results 05/14/24 Range/Units 15:43 Urine Opiates Screen Not Detected (NotDetected) Ur Oxycodone Screen Not Detected (NotDetected) Urine Methadone Screen Not Detected (NotDetected) Ur Barbiturates Screen Not Detected (NotDetected) U Tricyclic Antidepress Not Detected (NotDetected) Ur Phencyclidine Scrn Not Detected (NotDetected) Ur Amphetamines Screen Not Detected (NotDetected) U Methamphetamines Scrn Not Detected (NotDetected) U Benzodiazepines Scrn Not Detected (NotDetected) Urine Cocaine Screen Not Detected (NotDetected) U Marijuana (THC) Screen Not Detected (NotDetected) Disposition Clinical Impression: Depression Disposition: HOME SELF-CARE Condition: Stable Instructions (If sedation given, give patient instructions): Depression (ED) Additional Instructions: Please follow your safety plan. Return to the nearest emergency department if you feel that you are a danger to yourself or others. Is patient prescribed a controlled substance at d/c from ED?: No Referrals: None,Stated [Primary Care Provider] - 1-2 days
[2024-05-14 16:15] LABS: Amphetamine Screen,Urine Not Detected (NotDetected); Barbiturate Screen,Urine Not Detected (NotDetected); Benzodiazepines Screen,Urine Not Detected (NotDetected); Cocaine Screen,Urine Not Detected (NotDetected); Methadone Screen, Urine Not Detected (NotDetected); Opiate Screen,Urine Not Detected (NotDetected); Oxycodone Screen, Urine Not Detected (NotDetected); Phencyclidine Screen,Urine Not Detected (NotDetected); Tricyclic Antidepressant,Urine Not Detected (NotDetected); Urn Cannabinoid Scrn Not Detected (NotDetected)
== END 2024-05-14 17:23 | disposition home or self-care (01) ==
LOC: EC 04:18
DX: F32.A Depression, unspecified (principal); F17.200 Nicotine dependence, unspecified, uncomplicated; Z88.2 Allergy status to sulfonamides; Z88.1 Allergy status to other antibiotic agents; Z91.041 Radiographic dye allergy status
CPT/HCPCS: 80306; 99285